=== PATIENT | male | born 1995 ===

== ENCOUNTER 2018-04-24 12:46 | Emergency (ER) | payer MEDICARE, MEDICAID ==
[2018-04-24] MEDS ORDERED: Ibuprofen 800 MG TAB ONE (13:19)
--- NOTE | 2018-04-24 14:54 | RAD ---
LEFT FOOT 3 VIEWS: Date: 04/24/18 HISTORY: Injury, left foot pain. FINDINGS: No bony abnormality is seen. POS: C
== END 2018-04-24 13:52 | disposition home or self-care (01) ==
LOC: MADERS 12:46
DX: S90.32XA Contusion of left foot, initial encounter (principal); F90.9 Attention-deficit hyperactivity disorder, unspecified type; Z79.899 Other long term (current) drug therapy; W23.0XXA Caught, crushed, jammed, or pinched between moving objects, initial encounter